=== PATIENT | male | born 1975 ===

== ENCOUNTER 2018-05-27 23:47 | Observation (INO) | payer OTHER ==
--- NOTE | 2018-05-28 00:17 | ED PDOC ---
Arrival/HPI - General Chief Complaint: Chest Pain Time Seen by Provider: 05/27/18 23:48 Historian: Patient - History of Present Illness Narrative History of Present Illness (Text): 05/28/18 00:13 Ho Calderon is a 42 year old male smoker who presents to the Emergency department complaining of chest pain. Patient states he has been experiencing intermittent left-sided chest pain since yesterday after cutting grass. Patient states he snorts heroin recreationally. Patient denies any cocaine use, fever, shortness of breath, nausea, vomiting, diarrhea, urinary symptoms, back pain, neck pain, headache, dizziness, or any other complaints. Symptom Onset: Gradual Symptom Course: Unchanged Quality: Other (Sharp) Activities at Onset: Light Context: Home Past Medical History - Provider Review Nursing Documentation Reviewed: Yes - Cardiac Hx Cardiac Disorders: No (denies) - Psychiatric Hx Substance Use: Yes - Anesthesia Hx Anesthesia: No Family/Social History - Physician Review Nursing Documentation Reviewed: Yes Family/Social History: Unknown Family HX Smoking Status: Light Smoker < 10 Cigarettes Daily Hx Alcohol Use: Yes Frequency of alcohol use: Daily Hx Substance Use: Yes Substance used: snorts heroin daily. Allergies/Home Meds Allergies/Adverse Reactions: Allergies FISH Allergy (Unknown, Verified 05/27/18 23:52) ANAPHYLAXIS Home Medications: Home Meds Medication Instructions Recorded Confirmed No Known Home Med 05/28/18 05/28/18 Review of Systems - Physician Review All systems were reviewed & negative as marked: Yes - Review of Systems Constitutional: Normal. absent: Fevers Eyes: Normal ENT: Normal Respiratory: Normal. absent: SOB, Cough Cardiovascular: Chest Pain Gastrointestinal: Normal. absent: Abdominal Pain, Diarrhea, Nausea, Vomiting Genitourinary Male: Normal. absent: Dysuria, Frequency, Hematuria, Urinary Output Changes Musculoskeletal: Normal. absent: Back Pain, Neck Pain Skin: Normal. absent: Rash Neurological: Normal. absent: Headache, Dizziness Endocrine: Normal Hemo/Lymphatic: Normal Psychiatric: Normal Physical Exam Vital Signs Reviewed: Yes Vital Signs Temp Pulse Resp BP Pulse Ox 05/28/18 05:29 98.4 F 60 20 129/82 05/28/18 05:09 98 05/28/18 04:30 69 20 121/80 98 05/28/18 02:09 82 18 129/86 98 Temperature: Afebrile Blood Pressure: Normal Pulse: Regular Respiratory Rate: Normal Appearance: Positive for: Well-Appearing, Non-Toxic, Comfortable Pain Distress: None Mental Status: Positive for: Alert and Oriented X 3 - Systems Exam Head: Present: Atraumatic, Normocephalic Pupils: Present: PERRL Extroacular Muscles: Present: EOMI Conjunctiva: Present: Normal Mouth: Present: Moist Mucous Membranes Neck: Present: Normal Range of Motion. No: Meningeal Signs, MIDLINE TENDERNESS , Paraspinal Tenderness Respiratory/Chest: Present: Clear to Auscultation, Good Air Exchange. No: Respiratory Distress, Accessory Muscle Use Cardiovascular: Present: Regular Rate and Rhythm, Normal S1, S2. No: Murmurs Abdomen: No: Tenderness, Distention, Peritoneal Signs Back: Present: Normal Inspection. No: CVA Tenderness, Midline Tenderness, Paraspinal Tenderness Upper Extremity: Present: Normal Inspection. No: Cyanosis, Edema Lower Extremity: Present: Normal Inspection. No: Edema Neurological: Present: GCS=15, CN II-XII Intact, Speech Normal Skin: Present: Warm, Dry, Normal Color. No: Rashes Psychiatric: Present: Alert, Oriented x 3, Normal Insight, Normal Concentration Medical Decision Making ED Course and Treatment: 05/28/18 00:13 Impression: 42 year old male complaining of intermittent chest pain since yesterday. Differential Diagnosis included but are not limited to: musculoskeletal pain vs. pneumothorax vs. coronary angina Plan: -- EKG -- Chest X-Ray -- Labs, cardiac enzymes -- Aspirin -- Reassess and disposition Progress Notes: Reviewed EKG, NSR at [address]-segment elevations or depressions, no T-wave inversions, normal intervals. 05/28/18 01:52 Chest X-Ray reviewed, shows no acute processes. 05/28/18 02:03 Case discussed with biomedical engineering supervisor diamond blender, who is aware and agrees with plan. 05/28/18 02:[address] Beltran, who is aware and agrees with plan. Accepts pt in to hospitalist service. Pt will go to Telemetry observation for chest pain. - Lab Interpretations Lab Results: 05/28/18 00:19 05/28/18 00:19 Lab Results 05/28/18 00:19: WBC 8.1, RBC 4.28, Hgb 13.5 L, Hct 38.4 L, MCV 89.7, MCH 31.5, MCHC 35.2, RDW 12.7, Plt Count 236, MPV 9.8 05/28/18 00:19: Sodium 139, Potassium 4.0, Chloride 104, Carbon Dioxide 25, Anion Gap 14, BUN 15, Creatinine 0.9, Est GFR ( Amer) > 60, Est GFR (Non- Af Amer) > 60, Random Glucose 111 H, Calcium 9.4, Total Bilirubin 0.6, AST 29, ALT 27, Alkaline Phosphatase 62, Lactate Dehydrogenase 416, Total Creatine Kinase 208, Troponin I < 0.01, Total Protein 7.4, Albumin 4.3, Globulin 3.1, Albumin/Globulin Ratio 1.4 05/28/18 00:19: PT 13.1 H, INR 1.15, APTT 33.2 I have reviewed the lab results: Yes - RAD Interpretation Radiology Orders: 05/28/18 00:14 CHEST PORTABLE [RAD] Stat Roving Court Reporter: ED Physician - EKG Interpretation Interpreted by ED Physician: Yes Type: 12 lead EKG - Medication Orders Current Medication Orders: Aspirin (Ecotrin) 81 mg PO DAILY [facility] Last Admin: 05/28/18 09:32 Dose: 81 mg Clonidine HCl (Catapres) 0.1 mg PO Q8H PRN PRN Reason: withdrawal sx Enoxaparin Sodium (Lovenox) 40 mg SC DAILY [facility] PRN Reason: Protocol Last Admin: 05/28/18 09:32 Dose: 40 mg Subcutaneous Administrations Document 05/28/18 09:32 GM (Rec: 05/28/18 09:32 GM [id number]) Injection Site MAR Injection Site Right Abdomen Charges for Administration # of Subcutaneous Administrations 1 Folic Acid (Folic Acid) 1 mg PO DAILY [facility] Folic Acid 1 mg/ Thiamine HCl 100 mg/ Multivitamins/Vitamin C 10 ml/ Dextrose 1 ,011.2 mls @ 100 mls/hr IV .Q10H7M [facility] Stop: 05/29/18 03:31 Last Admin: 05/28/18 05:00 Dose: 100 mls/hr eMAR Start Stop Document 05/28/18 05:00 SS (Rec: 05/28/18 05:00 SS [id number]) Intravenous Solution Start Date 05/28/18 Start Time 05:00 Lorazepam (Ativan) 1 mg IVP Q4H PRN PRN Reason: Symptoms of alcohol withdrawl Last Admin: 05/28/18 08:11 Dose: 1 mg IVP Administration Document 05/28/18 08:11 KAAndra (Rec: 05/28/18 08:11 KAAndra [id number]) Charges for Administration # of IVP Administrations 1 Behavioural Document 05/28/18 08:11 ANGEL (Rec: 05/28/18 08:11 ANGEL [id number]) Maintenance Maintenance Dose No Nonmedicinal Nonmedicinal Interventions Redirect Therapeutic Communication Behavior Behavior for Medication: Anxiety Re-Assess: Reassess Psych Meds Document 05/28/18 08:41 KAA (Rec: 05/28/18 08:44 KAAndra [id number]) Reassess Psych Med Effective Multivitamins/Minerals (Therapeutic-M Tab) 1 tab PO DAILY [facility] Nicotine (Nicoderm Cq) 1 patch TD DAILY [facility] Last Admin: 05/28/18 11:35 Dose: 1 patch MAR Transdermal Patch Site Document 05/28/18 11:35 GM (Rec: 05/28/18 11:35 GM [id number]) Transdermal Patch Site Transdermal Patch Site Right Outer Upper Arm Ondansetron HCl (Zofran Tab) 4 mg PO Q8H PRN PRN Reason: Nausea/Vomiting Pantoprazole Sodium (Protonix Ec Tab) 40 mg PO ACB [facility] Thiamine HCl (Vitamin B1 Tab) 100 mg PO DAILY [facility] Discontinued Medications Aspirin (Aspirin) 325 mg PO ONCE [facility] Stop: 05/28/18 00:17 Last Admin: 05/28/18 00:36 Dose: 325 mg Pantoprazole Sodium (Protonix Inj) 40 mg IVP DAILY [facility] Last Admin: 05/28/18 09:32 Dose: 40 mg IVP Administration Document 05/28/18 09:32 GM (Rec: 05/28/18 09:32 GM [id number]) Charges for Administration # of IVP Administrations 1 - Scribe Statement The provider has reviewed the documentation as recorded by the Scribguilherme Conway All medical record entries made by the Scribe were at my direction and personally dictated by me. I have reviewed the chart and agree that the record accurately reflects my personal performance of the history, physical exam, medical decision making, and the department course for this patient. I have also personally directed, reviewed, and agree with the discharge instructions and disposition. Disposition/Present on Arrival - Present on Arrival Any Indicators Present on Arrival: No History of DVT/PE: No History of Uncontrolled Diabetes: No Urinary Catheter: No History of Decub. Ulcer: No History Surgical Site Infection Following: None - Disposition Have Diagnosis and Disposition been Completed?: Yes Diagnosis: Chest pain, Heroin use Disposition: HOSPITALIZED Disposition Time: 02:14 Patient Problems: Current Active Problems Problem Status Onset Chest pain Acute Heroin use Acute Condition: STABLE
[2018-05-28 00:31] LABS: HEMOGLOBIN 13.5 g/dL (14.0-18.0); MEAN CELL VOLUME 89.7 fl (80.0-105.0); MEAN CORPUSCULAR HEMOGLOBIN 31.5 pg (25.0-35.0); MEAN CORPUSCULAR HGB CONC 35.2 g/dl (31.0-37.0); MEAN PLATELET VOLUME 9.8 fl (7.0-11.0); RBC 4.28 10^6/uL (3.5-6.1); RED CELL DISTRIBUTION WIDTH 12.7 % (11.5-14.5); WHITE BLOOD COUNT 8.1 10^3/ul (4.5-11.0)
[2018-05-28 00:46] LABS: ALB/GLOB RATIO 1.4 (1.1-1.8); ALBUMIN 4.3 g/dL (3.0-4.8); ALT/SGPT 27 U/L (7-56); AST/SGOT 29 U/L (17-59); BLOOD UREA NITROGEN 15 mg/dL (7-21); CALCIUM 9.4 mg/dL (8.4-10.5); GFR NON-AFRICAN AMERICAN > 60; INR 1.15; PARTIAL THROMBOPLASTIN TIME 33.2 Seconds (25.1-36.5); PROTHROMBIN TIME 13.1 SECONDS (9.4-12.5)
[2018-05-28 00:57] LABS: TROPONIN I < 0.01 ng/mL
--- NOTE | 2018-05-28 03:12 | CP.PCM.HP ---
History of Present Illness - History of Present Illness History of Present Illness: Boone Escudero, PGY-1, Internal Medicine History and Physical for Dr. Beltran CC: chest pain 42 year old male with no past medical history presents with left sided sharp, stabbing, intermittent chest pain that started yesterday while he was lawnmowing. Patient reports that the pain radiated to his back initially but no longer radiates to his back. Patient was given aspirin 325 in the emergency department which marginally alleviated the pain. Exacerbating factors include pain reproducible to palpation. The patient denies shortness of breath, left arm pain, jaw pain, nausea, vomiting, diaphoresis, constipation, diarrhea, dysuria, hematuria, headache, dizziness. 12-point ROS was negative except for what was listed above. PMH: denies PSH: abscess drainage on multiple fingers FMHx: patient is unsure of family history SHx: smokes 3 cigarettes a day, snorts heroin occassionally, drinks alcohol daily Medications: denies PMD: denies Pharmacy: denies Insurance: [employer] Present on Admission - Present on Admission Any Indicators Present on Admission: No History of DVT/PE: No History of Uncontrolled Diabetes: No Review of Systems - Constitutional Constitutional: absent: Anorexia, Chills, Fever - EENT Eyes: absent: Blurred Vision Ears: absent: Ear Pain Nose/Mouth/Throat: absent: Nasal Discharge - Cardiovascular Cardiovascular: Chest Pain (left sided reproducible with palpation), Chest Pain at Rest, Chest Pain with Activity. absent: Diaphoresis, Dyspnea - Respiratory Respiratory: absent: Cough, Dyspnea, Wheezing - Gastrointestinal Gastrointestinal: absent: Abdominal Pain, Constipation, Diarrhea, Nausea, Vomiting - Genitourinary Genitourinary: absent: Dysuria, Hematuria - Musculoskeletal Musculoskeletal: Back Pain. absent: Arthralgias - Integumentary Integumentary: absent: Dry Skin, Skin Pain - Neurological Neurological: absent: Abnormal Gait, Numbness, Tingling, Weakness - Psychiatric Psychiatric: absent: Anxiety, Depression Past Patient History - Past Social History Smoking Status: Light Smoker < 10 Cigarettes Daily - CARDIAC Hx Cardiac Disorders: No (denies) - PSYCHIATRIC Hx Substance Use: Yes - SURGICAL HISTORY Hx Surgeries: No (denies) - ANESTHESIA Hx Anesthesia: No Meds Allergies/Adverse Reactions: Allergies Allergy/AdvReac Type Severity Reaction Status Date / Time FISH Allergy Unknown ANAPHYLAXIS Verified 05/27/18 23:52 Physical Exam - Constitutional Appears: Well, Non-toxic, No Acute Distress - Head Exam Head Exam: ATRAUMATIC, NORMAL INSPECTION, NORMOCEPHALIC - Eye Exam Eye Exam: EOMI, Normal appearance, PERRL Pupil Exam: NORMAL ACCOMODATION, PERRL - ENT Exam ENT Exam: Mucous Membranes Moist, Normal Exam - Neck Exam Neck exam: Positive for: Normal Inspection - Respiratory Exam Respiratory Exam: Chest Wall Tenderness (reproducible with palpation on the left ), Clear to Auscultation Bilateral, NORMAL BREATHING PATTERN - Cardiovascular Exam Cardiovascular Exam: REGULAR RHYTHM - GI/Abdominal Exam GI & Abdominal Exam: Normal Bowel Sounds, Soft, Tenderness (left sided abdominal pain in line with chest tenderness) - Extremities Exam Extremities exam: Positive for: normal inspection - Back Exam Back exam: NORMAL INSPECTION - Neurological Exam Neurological exam: Alert, CN II-XII Intact, Normal Gait, Oriented x3, Reflexes Normal - Psychiatric Exam Psychiatric exam: Normal Affect, Normal Mood - Skin Skin Exam: Dry, Intact, Normal Color, Warm Results - Labs Result Diagrams: 05/28/18 00:19 05/28/18 00:19 Assessment & Plan - Assessment and Plan (Free Text) Assessment: 42 year old male with no past medical history presents with left sided sharp, stabbing, intermittent chest pain that started yesterday while he was lawnmowing. Patient reports that the pain radiated to his back initially but no longer radiates to his back. Patient will be admitted for chest pain 2/2 to ACS vs. costochondritis. Doubt PE, pneumonia, pneumothorax Plan: Chest pain 2/2 to ACS vs. costochondritis. Doubt PE, pneumonia, pneumothorax -EKG: normal sinus rhythm with heart rate of 89 -Troponin: <0.01. 2 more troponins ordered for 6:00 and 14:00 -Lipid panel and TSH ordered. -Chest X ray: shows mild pulmonary congestion, normal sized cardiac silhoutte, no effusions or consolidations as read by me -Aspirin 325 given in the emergency department. Started aspirin 81 daily. -Cardiology, Dr. Heart, consulted for recommendations. Alcohol withdrawal -[facility] protocol initiated -Serum alcohol ordered. -Folic acid 1 mg daily, lactated ringer 1L at 125cc/hr, thiamine 100 mg daily, multivitamin -Ativan 1 mg IVP Q4PRN for withdrawal symptoms -Aspiration precautions -Seizure precautions -I and O -Regular diet -Neuro check Q4 Normocytic Anemia -Hgb: 13.5. -Continue to monitor with daily CBC Elevated PT -PT: 13.1. -Does not take anticoagulation medication. LFTs are normal. -Continue to monitor. DVT prophylaxis: lovenox 40 mg daily GI prophylaxis: protonix 40 mg daily Patient plan discussed with Dr. Beltran. - Date & Time Date: 05/28/18 Time: 03:43
[2018-05-28] MEDS ORDERED: Lactated Ringer's 1,000 ML IV SCH (03:30)
[2018-05-28] MEDS: Folic Acid 1 MG, Thiamine 100 MG, Multivitamin (MVI) 10 ML in Dextrose 5% In Water 1,00... IV SCH ×2 (05:00→19:57)
[2018-05-28 06:47] LABS: BASO # 0.03 K/mm3 (0.0-2.0); BASO % 0.4 % (0.0-3.0); EOS # 0.2 (0.0-0.7); EOS % 2.2 % (1.5-5.0); GRAN # 4.84 (1.4-6.5); HEMOGLOBIN 13.6 g/dL (14.0-18.0); LYMPH # 2.8 (1.2-3.4); LYMPH % 33.3 % (22.0-35.0); MEAN CELL VOLUME 90.7 fl (80.0-105.0); MEAN CORPUSCULAR HEMOGLOBIN 30.9 pg (25.0-35.0); MEAN CORPUSCULAR HGB CONC 34.1 g/dl (31.0-37.0); MEAN PLATELET VOLUME 10.2 fl (7.0-11.0); MONO # 0.6 (0.1-0.6); MONO % 7.1 % (1.0-6.0); RBC 4.4 10^6/uL (3.5-6.1); RED CELL DISTRIBUTION WIDTH 12.9 % (11.5-14.5); WHITE BLOOD COUNT 8.5 10^3/ul (4.5-11.0)
[2018-05-28 06:48] VITALS: BMI 27.9
[2018-05-28 07:02] LABS: ALB/GLOB RATIO 1.3 (1.1-1.8); ALT/SGPT 23 U/L (7-56); AST/SGOT 33 U/L (17-59); BLOOD UREA NITROGEN 13 mg/dL (7-21); CALCIUM 8.9 mg/dL (8.4-10.5); GFR NON-AFRICAN AMERICAN > 60
[2018-05-28 07:07] LABS: TROPONIN I < 0.01 ng/mL
--- NOTE | 2018-05-28 09:24 | RAD ---
Date of service: 05/28/2018 HISTORY: pain COMPARISON: No prior. FINDINGS: LUNGS: Minimal bibasilar infiltrates are seen PLEURA: No significant pleural effusion identified, no pneumothorax apparent. CARDIOVASCULAR: Normal. OSSEOUS STRUCTURES: No significant abnormalities. VISUALIZED UPPER ABDOMEN: Normal. OTHER FINDINGS: None. IMPRESSION: Minimal bibasilar infiltrates
[2018-05-28] MEDS: Enoxaparin 40 mg Syringe SC SCH (09:32)
[2018-05-28 18:15] LABS: BARBITURATES, UR NEGATIVE (NEGATIVE); BENZODIAZEPINES, UR NEGATIVE (NEGATIVE); OPIATES, UR POSITIVE (NEGATIVE); PHENCYCLIDINE, UR NEGATIVE (NEGATIVE)
--- NOTE | 2018-05-28 18:24 | CARD ---
APPROVED REPORT Date of service: 05/28/2018 EXAM: Two-dimensional and M-mode echocardiogram with Doppler and color Doppler. INDICATION Chest Pain 2D DIMENSIONS Left Atrium (2D)4.2 (1.6-4.0cm)IVSd0.9 (0.7-1.1cm) LVDd5.6 (3.9-5.9cm)PWd1.0 (0.7-1.1cm) LVDs4.0 (2.5-4.0cm)FS (%) 28.2 % LVEF (%)53.9 (>50%) M-Mode DIMENSIONS Aortic Root3.40 (2.2-3.7cm)Aortic Cusp Exc.2.00 (1.5-2.0cm) Aortic Valve AoV Peak Idixgcbn221.0cm/Huy Peak GR.9mmHg Mitral Valve MV E Mjzqqeve38.6cm/sMV A Azyylyoz20.0cm/sE/A ratio0.9 TDI Lateral E' Peak V10.70cm/sMedial E' Peak V6.34cm/sE/Lateral E'6.4 E/Medial E'10.8 Pulmonary Valve PV Peak Txfvhxse40.0cm/sPV Peak Grad.2mmHg Tricuspid Valve TR Peak Qjjyvhtf242sv/sRAP FJXXRKHW63hzMhSA Peak Gr.18mmHg [id number] LEFT VENTRICLE The left ventricle is normal size. There is normal left ventricular wall thickness. The left ventricular function is normal. The left ventricular ejection fraction is within the normal range. There is normal LV segmental wall motion. Transmitral Doppler flow pattern is Grade I-abnormal relaxation pattern. RIGHT VENTRICLE The right ventricle is normal size. There is normal right ventricular wall thickness. The right ventricular systolic function is normal. ATRIA The left atrium is borderline dilated. The right atrium size is normal. AORTIC VALVE The aortic valve is normal in structure. No aortic regurgitation is present. There is no aortic valvular stenosis. MITRAL VALVE The mitral valve is normal in structure. There is no mitral valve regurgitation noted. There is no mitral valve stenosis. TRICUSPID VALVE The tricuspid valve is normal in structure. There is trace tricuspid regurgitation. GREAT VESSELS The aortic root is normal in size. The IVC is normal in size and collapses >50% with inspiration. PERICARDIAL EFFUSION There is no pericardial effusion. <Conclusion> The left ventricle is normal size. There is normal left ventricular wall thickness. The left ventricular function is normal. The left ventricular ejection fraction is within the normal range. There is normal LV segmental wall motion. Transmitral Doppler flow pattern is Grade I-abnormal relaxation pattern.
--- NOTE | 2018-05-28 18:54 | CARD ---
APPROVED REPORT Date of service: 05/28/2018 EKG Measurement Heart [id number] <Conclusion> Normal sinus rhythm with sinus arrhythmia Normal ECG
--- NOTE | 2018-05-28 19:22 | CARD ---
APPROVED REPORT Date of service: 05/28/2018 EKG Measurement Heart [id number] <Conclusion> Normal sinus rhythm Normal ECG
--- NOTE | 2018-05-28 19:25 | CARD ---
APPROVED REPORT Date of service: 05/28/2018 EKG Measurement Heart [id number] [id number] <Conclusion> Normal sinus rhythm Normal ECG
--- NOTE | 2018-05-28 20:52 | CON ---
Copied To: Gatito Heart MD Attending MD: Gatito Heart MD DATE: 05/28/2018 CARDIOLOGY CONSULTATION REASON FOR CONSULTATION: Chest pain. HISTORY OF PRESENT ILLNESS: The patient is a 42-year-old male who is a smoker, drinker, and heroin abuser. He presented because of sharp chest pain. The patient at the time of my evaluation was uncooperative and he the history he gave to other physicians. However, he denied having chest pain at the time of my evaluation. The patient denied also any prior cardiac history. SOCIAL HISTORY: He is a smoker, drinker and heroin abuser. MEDICATIONS: Clonidine 0.1 mg every 8 hours, aspirin 81 mg once a day, multivitamin infusion, folic acid 1 mg p.o. once a day, Lovenox 40 mg subcutaneous once a day, nicotine patch daily, Protonix 40 mg twice a day, thiamine 100 mg once a day, Zofran 4 mg p.o. every 8 hours p.r.n. for nausea or vomiting. PHYSICAL EXAMINATION GENERAL: The patient is a middle-aged male who does not appear to be in any distress. VITAL SIGNS: Blood pressure 129/82, heart rate 60, temperature 98.4, respiration 20. HEENT: Normocephalic. CHEST: Clear. HEART: S1 and S2 regular. ABDOMEN: Soft. EXTREMITIES: No edema. LABORATORY DATA: SMA-7 is within normal limits except for glucose of 112. Two sets of troponins are negative. Alcohol level less than 10. Urine drug screen was ordered, but has not been collected yet. EKG revealed normal sinus rhythm. Chest x-ray was unremarkable. ASSESSMENT: 1. Atypical chest pain, myocardial infarction ruled out. 2. Status post heroin abuse. RECOMMENDATIONS: Continue current aspirin, clonidine, multivitamin, thiamine and Nicoderm patch. Obtain D-dimer as well as an echocardiography study. Gatito Heart MD
[2018-05-29 00:18] VITALS: O2SAT 100
[2018-05-29] MEDS: Folic Acid 1 MG, Thiamine 100 MG, Multivitamin (MVI) 10 ML in Dextrose 5% In Water 1,00... IV SCH (05:47)
[2018-05-29 06:17] VITALS: BP 95/55; PULSE 85; RESP 16; TEMP 98.5
[2018-05-29 06:43] LABS: LDL CHOLESTEROL 109 mg/dL (0-129)
[2018-05-29 06:45] LABS: BASO # 0.04 K/mm3 (0.0-2.0); BASO % 0.3 % (0.0-3.0); EOS # 0.1 (0.0-0.7); EOS % 0.4 % (1.5-5.0); GRAN # 9.25 (1.4-6.5); GRAN % 75.3 % (50.0-68.0); HEMOGLOBIN 14.1 g/dL (14.0-18.0); LYMPH % 16.3 % (22.0-35.0); MEAN CELL VOLUME 88.8 fl (80.0-105.0); MEAN CORPUSCULAR HEMOGLOBIN 30.9 pg (25.0-35.0); MEAN CORPUSCULAR HGB CONC 34.8 g/dl (31.0-37.0); MEAN PLATELET VOLUME 10.3 fl (7.0-11.0); MONO % 7.7 % (1.0-6.0); RBC 4.56 10^6/uL (3.5-6.1); RED CELL DISTRIBUTION WIDTH 12.4 % (11.5-14.5); WHITE BLOOD COUNT 12.3 10^3/ul (4.5-11.0)
[2018-05-29 06:46] LABS: ALB/GLOB RATIO 1.2 (1.1-1.8); ALBUMIN 3.8 g/dL (3.0-4.8); ALT/SGPT 21 U/L (7-56); AST/SGOT 20 U/L (17-59); BLOOD UREA NITROGEN 7 mg/dL (7-21); CALCIUM 8.8 mg/dL (8.4-10.5); GFR NON-AFRICAN AMERICAN > 60; HDL CHOLESTEROL 32 mg/dL (29-60); LIPASE 71 U/L (23-300)
[2018-05-29] MEDS ORDERED: Pantoprazole 40 mg EC Tab PO SCH (07:30)
[2018-05-29] MEDS ORDERED: Multivitamin With Minerals Tab PO SCH (10:00)
[2018-05-29] MEDS: Enoxaparin 40 mg Syringe SC SCH (10:11)
[2018-05-29] MEDS ORDERED: Iohexol 350 MG/100 ML VIAL ONE (10:22)
--- NOTE | 2018-05-29 11:53 | CT ---
Date of service: 05/29/2018 PROCEDURE: CT Chest with contrast (Pulmonary Angiogram) HISTORY: r/o PE COMPARISON: None available. TECHNIQUE: Axial computed tomography images were obtained of the chest in the pulmonary arterial phase of enhancement. Coronal and sagittal reformatted images were created and reviewed. Intravenous contrast dose: Omnipaque 350, 100 cc Radiation dose: Total exam DLP = 460.72 mGy-cm. This CT exam was performed using one or more of the following dose reduction techniques: Automated exposure control, adjustment of the mA and/or kV according to patient size, and/or use of iterative reconstruction technique. FINDINGS: PULMONARY ARTERIES: Unremarkable. No pulmonary embolism. AORTA: No acute findings. No thoracic aortic aneurysm. LUNGS: Linear atelectasis or fibrosis bilateral lung bases mildly apparent. No definite alveolar infiltrate. Peripheral emphysematous change are identified at the right upper lobe posteriorly and minimally affecting the anterior right upper lobe and bilateral apices. No definitive pulmonary parenchymal mass or central airway lesion appreciated. PLEURAL SPACES: Unremarkable. No effusion or pneumothorax. HEART: Unremarkable. No cardiomegaly. No significant pericardial effusion. LYMPH NODES: Shotty by axillary and preaortic lymph nodes identified. No prominent mediastinal lymphadenopathy identified. BONES, CHEST WALL: Unremarkable. No fracture or destructive lesion OTHER FINDINGS: Unremarkable. IMPRESSION: 1. No CT evidence of acute pulmonary embolus. 2. No thoracic aortic aneurysm identified. 3. Limited bilateral basilar lower lobe dependent atelectasis or fibrosis. Bilateral upper lobe limited emphysematous change. Potential early COPD. Clinically correlate further.
--- NOTE | 2018-05-29 11:53 | PN ---
Copied To: Gatito Heart MD Attending MD: Gatito Heart MD DATE: 05/29/2018 SUBJECTIVE: The patient denies any chest pain or shortness of breath. PHYSICAL EXAMINATION: VITAL SIGNS: Blood pressure 95/55, heart rate 85, temperature 98.5, respirations 16. HEENT: Normocephalic. CHEST: Clear. HEART: S1 and S2 regular. EXTREMITIES: No edema. LABORATORY DATA: Today's Hemoglobin and hematocrit 14.1 and 40.5. White count is 12.3, platelet count is within normal limits. Today's SMA-7 is within normal limits except for glucose of 123. Three sets of troponins are negative. TSH level is within normal limit. Lipase is within normal limit. Lipid profile is within normal limit. D-dimer is elevated 314. Urine drug screen is positive for amphetamines and opiates. Echocardiographic study revealed normal left ventricular size, wall thickness and systolic function. ASSESSMENT: 1. Chest pain, myocardial infarction was ruled out. 2. Amphetamine and heroin abuse. CONDITIONS: Continue current subcutaneous Lovenox 40 mg once a day, aspirin 81 mg once a day, clonidine 0.1 mg every 8 hours, thiamine 100 mg once a day. Obtain chest CT angio to rule out PE. Gatito Heart MD
--- NOTE | 2018-05-29 14:30 | CP.PCM.PN ---
Subjective - Date & Time of Evaluation Date of Evaluation: 05/29/18 Time of Evaluation: 14:23 - Subjective Subjective: Vega Moreno PGY-2 - Progress Note Discharge planning was discussed with patient in detail including options and recommendations for outpatient follow up. After leaving room nursing contacted primary care team reporting patient was having feelings of depression. Primary medical team returned to patient's room for assessment. Patient denied suicidal and homicidal ideation. He indicated he was feeling down due to his long standing fight with polysubstance abuse. Social work was contacted and planned to discuss with patient his options going forward for drug rehab upon discharge. Patient showed no signs of withdrawal symptoms and was AAOx3. Objective - Vital Signs/Intake and Output Vital Signs (last 24 hours): Temp Pulse Resp BP Pulse Ox 98.5 F 85 16 95/55 L 100 05/29/18 06:00 05/29/18 06:00 05/29/18 06:00 05/29/18 06:00 05/29/18 06:00 Intake and Output: 05/29/18 05/29/18 06:59 18:59 Intake Total 1320 Output Total 450 Balance 870 - Medications Medications: Current Medications Aspirin (Ecotrin) 81 mg PO DAILY [facility] Last Admin: 05/29/18 10:11 Dose: 81 mg Clonidine HCl (Catapres) 0.1 mg PO Q8H PRN PRN Reason: withdrawal sx Enoxaparin Sodium (Lovenox) 40 mg SC DAILY [facility] PRN Reason: Protocol Last Admin: 05/29/18 10:11 Dose: 40 mg Folic Acid (Folic Acid) 1 mg PO DAILY [facility] Last Admin: 05/29/18 10:11 Dose: 1 mg Multivitamins/Minerals (Therapeutic-M Tab) 1 tab PO DAILY [facility] Last Admin: 05/29/18 10:11 Dose: 1 tab Nicotine (Nicoderm Cq) 1 patch TD DAILY [facility] Last Admin: 05/29/18 10:10 Dose: 1 patch Ondansetron HCl (Zofran Tab) 4 mg PO Q8H PRN PRN Reason: Nausea/Vomiting Pantoprazole Sodium (Protonix Ec Tab) 40 mg PO ACB [facility] Last Admin: 05/29/18 10:12 Dose: 40 mg Thiamine HCl (Vitamin B1 Tab) 100 mg PO DAILY [facility] Last Admin: 05/29/18 10:11 Dose: 100 mg - Labs Labs: 05/29/18 05:45 05/29/18 05:30 PT 13.1 SECONDS (9.4-12.5) H 05/28/18 00:19 INR 1.15 05/28/18 00:19 APTT 33.2 Seconds (25.1-36.5) 05/28/18 00:19
--- NOTE | 2018-05-29 15:16 | CP.PCM.DIS ---
Provider - Provider Date of Admission: 05/28/18 02:12 Attending physician: Rachel Granger DO Primary care physician: Mable Quezada Consults: Cardio Time Spent in preparation of Discharge (in minutes): 70 Hospital Course - Lab Results Lab Results: Most Recent Lab Values WBC 12.3 10^3/ul (4.5-11.0) H D 05/29/18 05:45 RBC 4.56 10^6/uL (3.5-6.1) 05/29/18 05:45 Hgb 14.1 g/dL (14.0-18.0) 05/29/18 05:45 Hct 40.5 % (42.0-52.0) L 05/29/18 05:45 MCV 88.8 fl (80.0-105.0) 05/29/18 05:45 MCH 30.9 pg (25.0-35.0) 05/29/18 05:45 MCHC 34.8 g/dl (31.0-37.0) 05/29/18 05:45 RDW 12.4 % (11.5-14.5) 05/29/18 05:45 Plt Count 254 10^3/uL (120.0-450.0) 05/29/18 05:45 MPV 10.3 fl (7.0-11.0) 05/29/18 05:45 Gran % 75.3 % (50.0-68.0) H 05/29/18 05:45 Lymph % (Auto) 16.3 % (22.0-35.0) L 05/29/18 05:45 [place] % (Auto) 7.7 % (1.0-6.0) H 05/29/18 05:45 Eos % (Auto) 0.4 % (1.5-5.0) L 05/29/18 05:45 Baso % (Auto) 0.3 % (0.0-3.0) 05/29/18 05:45 Gran # 9.25 (1.4-6.5) H 05/29/18 05:45 Lymph # (Auto) 2.0 (1.2-3.4) 05/29/18 05:45 [place] # (Auto) 1.0 (0.1-0.6) H 05/29/18 05:45 Eos # (Auto) 0.1 (0.0-0.7) 05/29/18 05:45 Baso # (Auto) 0.04 K/mm3 (0.0-2.0) 05/29/18 05:45 PT 13.1 SECONDS (9.4-12.5) H 05/28/18 00:19 INR 1.15 05/28/18 00:19 APTT 33.2 Seconds (25.1-36.5) 05/28/18 00:19 D-Dimer, Quantitative 314 ng/mlDDU (0-243) H 05/28/18 13:10 Sodium 138 mmol/L (132-148) 05/29/18 05:30 Potassium 3.7 mmol/L (3.6-5.0) 05/29/18 05:30 Chloride 105 mmol/L (98-107) 05/29/18 05:30 Carbon Dioxide 25 mmol/L (21-33) 05/29/18 05:30 Anion Gap 12 (10-20) 05/29/18 05:30 BUN 7 mg/dL (7-21) 05/29/18 05:30 Creatinine 0.8 mg/dl (0.8-1.5) 05/29/18 05:30 Est GFR ( Amer) > 60 05/29/18 05:30 Est GFR (Non-Af Amer) > 60 05/29/18 05:30 Random Glucose 123 mg/dL (70-110) H 05/29/18 05:30 Calcium 8.8 mg/dL (8.4-10.5) 05/29/18 05:30 Phosphorus 3.1 mg/dL (2.5-4.5) 05/29/18 05:30 Magnesium 2.2 mg/dL (1.7-2.2) 05/28/18 05:30 Total Bilirubin 0.7 mg/dL (0.2-1.3) 05/29/18 05:30 AST 20 U/L (17-59) 05/29/18 05:30 ALT 21 U/L (7-56) 05/29/18 05:30 Alkaline Phosphatase 57 U/L (38-126) 05/29/18 05:30 Lactate Dehydrogenase 416 U/L (333-699) 05/28/18 00:19 Total Creatine Kinase 208 U/L (35-230) 05/28/18 00:19 Troponin I < 0.01 ng/mL 05/28/18 15:15 NT-Pro-B Natriuret Pep 28.8 pg/mL (0-450) 05/28/18 05:30 Total Protein 7.0 g/dL (5.8-8.3) 05/29/18 05:30 Albumin 3.8 g/dL (3.0-4.8) 05/29/18 05:30 Globulin 3.2 gm/dL 05/29/18 05:30 Albumin/Globulin Ratio 1.2 (1.1-1.8) 05/29/18 05:30 Triglycerides 85 mg/dL (35-160) 05/29/18 05:30 Cholesterol 172 mg/dL (130-200) 05/29/18 05:30 LDL Cholesterol Direct 109 mg/dL (0-129) 05/29/18 05:30 HDL Cholesterol 32 mg/dL (29-60) 05/29/18 05:30 Lipase 71 U/L (23-300) 05/29/18 05:30 TSH 3rd Generation 1.18 mIU/mL (0.46-4.68) 05/29/18 05:30 Urine Opiates Screen Positive (NEGATIVE) H 05/28/18 17:30 Urine Methadone Screen Negative (NEGATIVE) 05/28/18 17:30 Ur Barbiturates Screen Negative (NEGATIVE) 05/28/18 17:30 Ur Phencyclidine Scrn Negative (NEGATIVE) 05/28/18 17:30 Ur Amphetamines Screen Positive (NEGATIVE) H 05/28/18 17:30 U Benzodiazepines Scrn Negative (NEGATIVE) 05/28/18 17:30 U Oth Cocaine Metabols Negative (NEGATIVE) 05/28/18 17:30 U Cannabinoids Screen Negative (NEGATIVE) 05/28/18 17:30 Alcohol, Quantitative < 10 mg/dL (0-10) 05/28/18 05:30 - Hospital Course Hospital Course: 42 year old male past medical history heroin use presents with left sided sharp , stabbing, intermittent chest pain that started yesterday while he was lawnmowing. Patient reports that the pain radiated to his back initially but no longer radiates to his back. Patient was given aspirin 325 in the emergency department which marginally alleviated the pain. Exacerbating factors include pain reproducible to palpation. The patient denies shortness of breath, left arm pain, jaw pain, nausea, vomiting, diaphoresis, constipation, diarrhea, dysuria, hematuria, headache, dizziness. 12-point ROS was negative except for what was listed above. In the ED: EKG showed NSR at 69bpm. Troponins were negative. CXR showed mild pulmonary congestion, no effusions or consolidations. Pt was given ASA 325 and felt that the chest pain subsided. Pt was admitted for r/o ACS. Upon admission, chest pain improved. Pt was started on ASA 81 daily, folic acid , thiamine, multivitamin, clonidine 0.1 q8h, and LR. Cardio was consulted and recommended a D-dimer, which was elevated. CT Angio was performed which was negative for an acute PE or thoracic aortic aneurysm. It did show limited b/l basilar lower lobe atelectasis/fibrosis and b/l upper lobe limited emphysematous change, potential early COPD. Pt was hemodynamically stable for discharge. Pt expressed interest in rehab program for heroin use, and was given information. Pt was instructed to refrain from using drugs or tobacco. He was discharged with hydroxyzine for sleep aid (5 days) and instructions to follow up with primary care. Pt comprehended and agreed. Discharge Exam - Head Exam Head Exam: ATRAUMATIC, NORMAL INSPECTION, NORMOCEPHALIC - Eye Exam Eye Exam: EOMI Pupil Exam: NORMAL ACCOMODATION - Respiratory Exam Respiratory Exam: Clear to PA & Lateral, NORMAL BREATHING PATTERN - Cardiovascular Exam Cardiovascular Exam: REGULAR RHYTHM, +S1, +S2 - GI/Abdominal Exam GI & Abdominal Exam: Normal Bowel Sounds, Soft. absent: Tenderness - Extremities Exam Extremities exam: normal inspection - Back Exam Back exam: NORMAL INSPECTION - Neurological Exam Neurological exam: Alert, Oriented x3 - Psychiatric Exam Additional comments: no suicidal/homicidal ideations - Skin Skin Exam: Normal Color Discharge Plan - Discharge Medications Prescriptions: Hydroxyzine Pamoate [Vistaril] 25 mg PO HS PRN #5 capsule PRN Reason: Insomnia - Follow Up Plan Condition: STABLE Disposition: HOME/ ROUTINE Instructions: Chest Pain, Alcohol Withdrawal (DC) Additional Instructions: Please follow up with your primary care physician within 1 week. Please take the follow medication as prescribed: Vistaril at night if needed. Please return to the emergency department if symptoms return. Please refrain from using drugs and tobacco as it will worsen your condition. Referrals: Mable Quezada MD [Primary Care Provider] -
== END 2018-05-29 15:41 | disposition home or self-care (01) ==
LOC: ED 23:47 → ERH 05-28 02:12 → 3RNO 05-28 05:20
PROVIDERS: ADMIT Hospitalist; ATTEND Hospitalist
DX: R07.89 Other chest pain (principal); F11.10 Opioid abuse, uncomplicated; F15.10 Other stimulant abuse, uncomplicated; F17.210 Nicotine dependence, cigarettes, uncomplicated
CPT/HCPCS: 36415; 71045; 71275; 80053; 80061; 80320; 80324; 80345; 80346; 80349; 80353; 80358; 80361; 82550; 83615; 83690; 83735; 83880; 83992; 84100; 84443; 84484; 85025; 85027; 85378; 85610; 85730; 93005; 93306; 99285; C9113; G0378; J1650; J2060; J3411; J7070; Q9967

== ENCOUNTER 2018-05-29 20:51 | Emergency (ER) | payer OTHER ==
[2018-05-29 21:40] VITALS: BMI 28.4
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
[2018-05-29 23:21] LABS: BASO # 0.04 K/mm3 (0.0-2.0); BASO % 0.3 % (0.0-3.0); EOS # 0.1 (0.0-0.7); EOS % 0.5 % (1.5-5.0); GRAN # 8.18 (1.4-6.5); GRAN % 63.4 % (50.0-68.0); HEMOGLOBIN 15.5 g/dL (14.0-18.0); LYMPH # 3.7 (1.2-3.4); LYMPH % 28.7 % (22.0-35.0); MEAN CELL VOLUME 90.2 fl (80.0-105.0); MEAN CORPUSCULAR HEMOGLOBIN 31.6 pg (25.0-35.0); MEAN CORPUSCULAR HGB CONC 35.1 g/dl (31.0-37.0); MEAN PLATELET VOLUME 10.2 fl (7.0-11.0); MONO # 0.9 (0.1-0.6); MONO % 7.1 % (1.0-6.0); RBC 4.9 10^6/uL (3.5-6.1); RED CELL DISTRIBUTION WIDTH 12.6 % (11.5-14.5); WHITE BLOOD COUNT 12.9 10^3/ul (4.5-11.0)
[2018-05-29 23:29] LABS: ACETAMINOPHEN < 10.0 ug/ml (10.0-20.0); SALICYLATE < 1 mg/dL (2.0-20.0)
[2018-05-29 23:35] LABS: ALB/GLOB RATIO 1.4 (1.1-1.8); ALBUMIN 4.7 g/dL (3.0-4.8); ALT/SGPT 21 U/L (7-56); AST/SGOT 20 U/L (17-59); BLOOD UREA NITROGEN 9 mg/dL (7-21); CALCIUM 9.5 mg/dL (8.4-10.5); GFR NON-AFRICAN AMERICAN > 60; LIPASE 53 U/L (23-300)
[2018-05-29 23:58] LABS: URINE BILIRUBIN MODERATE (NEGATIVE); URINE BLOOD NEGATIVE (NEGATIVE); URINE GLUCOSE (UA) NEGATIVE (NEGATIVE); URINE LEUKOCYTE ESTERASE NEGATIVE Leu/uL (NEGATIVE); URINE PROTEIN 100 mg/dL (<30 mg/dL)
[2018-05-30 00:01] LABS: URINE APPEARANCE CLEAR (CLEAR); URINE COLOR DARK YELLOW (YELLOW)
[2018-05-30 00:57] LABS: URINE BACTERIA SMALL (NEG)
--- NOTE | 2018-05-30 07:12 | ED PDOC ---
Physical Exam Vital Signs Reviewed: Yes Vital Signs Temp Pulse Resp BP Pulse Ox 05/30/18 04:00 72 16 118/76 96 05/30/18 02:00 78 18 123/80 98 05/30/18 00:29 75 18 121/85 96 05/29/18 21:40 99 F 97 H 18 124/83 99 Temperature: Afebrile Blood Pressure: Normal Pulse: Tachycardic Respiratory Rate: Normal Appearance: Positive for: Well-Appearing, Non-Toxic, Comfortable Pain Distress: None Mental Status: Positive for: Alert and Oriented X 3 Medical Decision Making ED Course and Treatment: 05/30/18 07:11 Patient is being endorsed to me by Dr. Aureliano Regalado to f/u PES. Patient's CT normal. 05/30/18 08;44 His abdomen is soft and not tender. He's able to tolerate PO fluids. Currently has no abdominal pain. Patient was evaluated again by Dr. Lopez and PES. He was cleared for psychiatry discharge. He will f/u with the [facility]. He was advised to return to the ED if symptoms worsen or any other concern. - Lab Interpretations Lab Results: 05/29/18 22:20 05/29/18 22:20 Lab Results 05/29/18 23:45: Urine Color Dark yellow, Urine Appearance Clear, Urine pH 6.0, Ur Specific [place] 1.025, Urine Protein 100 H, Urine Glucose (UA) Negative, Urine Ketones Trace H, Urine Blood Negative, Urine Nitrate Negative, Urine Bilirubin Moderate H, Urine Urobilinogen 1.0 H, Ur Leukocyte Esterase Negative, Urine RBC 1 - 3, Urine WBC 2 - 5, Ur Epithelial Cells 1 - 3, Urine Bacteria Small, Urine Other Mucus 05/29/18 22:20: Alcohol, Quantitative < 10 05/29/18 22:20: Salicylates < 1 L, Acetaminophen < 10.0 L 05/29/18 22:20: Sodium 142, Potassium 4.0, Chloride 103, Carbon Dioxide 25, Anion Gap 18, BUN 9, Creatinine 1.1, Est GFR ( Amer) > 60, Est GFR (Non- Af Amer) > 60, Random Glucose 115 H, Calcium 9.5, Magnesium 2.3 H, Total Bilirubin 0.7, AST 20, ALT 21, Alkaline Phosphatase 61, Total Creatine Kinase 89 , Total Protein 8.2, Albumin 4.7, Globulin 3.5, Albumin/Globulin Ratio 1.4, Lipase 53 05/29/18 22:20: WBC 12.9 H, RBC 4.90, Hgb 15.5, Hct 44.2, MCV 90.2, MCH 31.6, MCHC 35.1, RDW 12.6, Plt Count 302, MPV 10.2, Gran % 63.4, Lymph % (Auto) 28.7, [place] % (Auto) 7.1 H, Eos % (Auto) 0.5 L, Baso % (Auto) 0.3, Gran # 8.18 H, Lymph # (Auto) 3.7 H, [place] # (Auto) 0.9 H, Eos # (Auto) 0.1, Baso # (Auto) 0.04 - RAD Interpretation Radiology Orders: 05/29/18 22:16 ABD & PELVIS W/O PO OR IV CONT [CT] Stat - Scribe Statement The provider has reviewed the documentation as recorded by the Rufus Mcelroy All medical record entries made by the Jonnibguilherme were at my direction and personally dictated by me. I have reviewed the chart and agree that the record accurately reflects my personal performance of the history, physical exam, medical decision making, and the department course for this patient. I have also personally directed, reviewed, and agree with the discharge instructions and disposition. Disposition/Present on Arrival - Present on Arrival Any Indicators Present on Arrival: No History of DVT/PE: No History of Uncontrolled Diabetes: No Urinary Catheter: No History of Decub. Ulcer: No History Surgical Site Infection Following: None - Disposition Have Diagnosis and Disposition been Completed?: Yes Diagnosis: Psychiatric care, Abdominal pain Disposition: HOME/ ROUTINE Disposition Time: 08:44 Patient Plan: Discharge Condition: IMPROVED Additional Instructions: CLAUDIA SANCHEZ, thank you for letting us take care of you today. Your provider was Kulwinder Navarrete DO and you were treated for Psychiatric Care. The emergency medical care you received today was directed at your acute symptoms. If you were prescribed any medication, please fill it and take as directed. It may take several days for your symptoms to resolve. Return to the Emergency Department if your symptoms worsen, do not improve, or if you have any other problems. Please contact your doctor or call one of the physicians/clinics you have been referred to that are listed on the Patient Visit Information form that is included in your discharge packet. Bring any paperwork you were given at discharge with you along with any medications you are taking to your follow up visit. Our treatment cannot replace ongoing medical care by a primary care provider outside of the emergency department. Thank you for allowing the [facility] team to be part of your care today. If you had an X-Ray or CT scan: A Radiologist will review the ED reading if any change in treatment is needed we will contact you. If you had a blood, urine, or wound culture: It will take several days for the results, if any change in treatment is needed we will contact you. If you had an STI test: It will take 48 hours for the results. Please call after 1 week if you have not heard back. Referrals: [facility] at [facility] [place] - Follow up with primary Forms: [employer] (Congolese), WORK NOTE
[2018-05-30 08:47] VITALS: BP 123/77; PULSE 75; RESP 18; TEMP 98; O2SAT 97
--- NOTE | 2018-05-30 08:58 | CT ---
Date of service: 05/30/2018 PROCEDURE: CT Abdomen and Pelvis without intravenous contrast HISTORY: Abdominal pain COMPARISON: None. TECHNIQUE: CT scan of the abdomen and pelvis was performed without administration of intravenous contrast. Oral contrast was not administered. Coronal and sagittal reformatted images were obtained. . Radiation dose: Total exam DLP = 580.82 mGy-cm. This CT exam was performed using one or more of the following dose reduction techniques: Automated exposure control, adjustment of the mA and/or kV according to patient size, and/or use of iterative reconstruction technique. FINDINGS: LOWER THORAX: There is linear atelectasis in the lung bases. LIVER: Normal in size. No intrahepatic ductal dilatation. GALLBLADDER AND BILE DUCTS: No calcified gallstones. No biliary dilatation PANCREAS: Normal in size. No ductal dilatation. SPLEEN: Normal in size. ADRENALS: Normal in size. No discrete nodule. KIDNEYS AND URETERS: Normal in size without nephrolithiasis. No hydronephrosis. Contrast in the collecting system from prior intravenous injection. VASCULATURE: No aortic aneurysm. BOWEL: The small bowel loops are normal in caliber. The colon is normal in size. No bowel dilatation or wall thickening. No bowel obstruction. APPENDIX: Normal appendix. PERITONEUM: No free fluid. No free air. LYMPH NODES: No enlarged lymph nodes. BLADDER: Decompressed. REPRODUCTIVE: The uterus is normal in size BONES: No acute fracture. OTHER FINDINGS: Bilateral small fat containing inguinal hernias. Small foci of air in the left lower abdominal subcutaneous fat likely related to subcutaneous injection. IMPRESSION: No acute abdominal or pelvic abnormality. A preliminary report was provided by [employer].
== END 2018-05-30 08:43 | disposition home or self-care (01) ==
LOC: ED 20:51
DX: R10.9 Unspecified abdominal pain (principal); Z00.8 Encounter for other general examination